=== PATIENT | male | born 1975 | race Caucasian/White ===

== ENCOUNTER → 2018-02-22 | Outpatient (CLI) | payer BC, OTHER ==
--- NOTE | 2018-02-22 16:25 | DIAGNOSTIC IMAGING REPORT ---
PELVIS 1 OR 2 VIEWS CLINICAL HISTORY: B/L HIP AND HAMSTRING PAIN pain COMPARISON: None. DISCUSSION: The bones and joint spaces appear intact. There is no evidence of fracture, dislocation or bony disease. There is no evidence for soft tissue swelling. IMPRESSION: Negative study. The above report was generated using voice recognition software. It may contain grammatical, syntax or spelling errors. Electronically signed by: Davion Morton M.D. 02/22/2018 4:24 PM Dictated Date/Time: 02/22/2018 4:24 PM
== END | disposition home or self-care (01) ==
LOC: C.RDSM 18:56
PROVIDERS: ATTEND Family Medicine
DX: M25.551 Pain in right hip (principal)